=== PATIENT | male | born 1970 | race Caucasian/White ===

== ENCOUNTER 2020-08-05 14:55 | Emergency (ER) | payer OTHER, SELFPAY ==
[2020-08-05 15:09] VITALS: BP 174/136; PULSE 105; RESP 20; TEMP 37.2; O2SAT 98
--- NOTE | 2020-08-05 15:14 | ED.GENADULT ---
HPI - General Adult General Chief complaint: Upper Respiratory Infection Stated complaint: chest congestion Time Seen by Provider: 08/05/20 15:14 Source: patient and RN notes reviewed Mode of arrival: ambulatory Limitations: no limitations History of Present Illness HPI narrative: 49-year-old male presents with complaints of upper respiratory infection, sneezing, some facial congestion, facial pressure, and intermittent headache (not the worst of his life) for the past days. Rolando says approximately 6 weeks ago had similar symptoms with improvement except continue to have facial pressure and congestion. Theraflu this morning without relief. No facial swelling. Dry cough with intermittent productive whitish-yellow phlegm, no chest congestion. Nasal congestion and rhinorrhea. No sore throat. No high fevers, drooling, neck or throat swelling. No voice change. No nausea, vomiting, or abdominal pain. Tolerating liquids well. No chest pain or shortness of breath. Remains active. The patient reports he have not been diagnosed with COVID-19. The patient reports he is not waiting for the results of a COVID-19 lab test. The patient reports he do not have chills, weakness, or fatigue. The patient reports he do not have a worsening cough or shortness of breath. The patient reports he do not have any loss of taste, and diarrhea. Denies recent traveling. Denies concerns for COVID-19 or exposures been home with limited outdoor exposure except for essential household needs, work, and return home. At this time, patient is not suspected of having COVID-19. Some parts of this dictation were generated by voice recognition software and may contain typographical and/or grammatical inaccuracies. Related Data Allergies Allergy/AdvReac Type Severity Reaction Status Date / Time No Known Allergies Allergy Unverified 10/14/16 19:12 Review of Systems Review of Systems: Narrative: CONSTITUTIONAL: Denies fever, chills, sweats. EYES: Denies visual changes, redness, discharge. ENT: Complains of rhinorrhea, congestion, facial congestion and pressure, sore throat. Denies otalgia. CARDIOVASCULAR: Denies chest pain, palpitations, edema. RESPIRATORY: Denies dyspnea, wheezing. Complains of dry cough/intermittent productive cough. GASTROINTESTINAL: Denies abdominal pain, nausea, vomiting, diarrhea. GENITOURINARY: Denies dysuria, hematuria, abnormal discharge SKIN: Denies rash or itching. MUSCULOSKELETAL: Denies acute back pain, joint pain, or myalgia. NEUROLOGIC: Denies numbness, or focal weakness. Complains of intermittent LONGORIA. PSYCHIATRIC: Denies anxiety or depression. All other systems reviewed & are unremarkable except as noted in HPI and below. [facility] Past Medical History Medical History (Updated 08/06/20 @ 11:00 by ROSS Cleary) Allergies Surgical History Surgical History (Updated 08/06/20 @ 11:00 by ROSS Cleary) No significant past surgical history Family History Family History (Updated 08/06/20 @ 11:08 by ROSS Cleary) Father , in 2007 History of asbestosis Cancer Mother Alive and well Social History Social History (Updated 08/06/20 @ 11:11 by ROSS Cleary) Smoking status: Never smoker Tobacco type: cigarettes Second hand tobacco smoke exposure: No Alcohol intake: former Substance use: current Substance use type: marijuana Living arrangements: with family Occupation/Education: unemployed Gender identity (if verbalized by the patient): Male Comments At time of signature, agree with nurse past medical, surgical, social, and family history. There is no relevant family history pertinent to the presenting complaint. Exam Narrative: Exam Narrative: GENERAL: This is a well-nourished, well-developed patient, in no apparent distress. Talks in full sentences and ambulates with steady gait without dyspnea. HEAD: normocephalic, atraumatic. EYES: PERRL. S
[2020-08-05 15:26] VITALS: BP 151/92
== END 2020-08-05 15:37 | disposition home or self-care (01) ==
PROVIDERS: Emergency Provider Nurse Practitioner Family
DX: J32.9 Chronic sinusitis, unspecified (principal); H65.191 Other acute nonsuppurative otitis media, right ear
CPT/HCPCS: 99203; G0463

== ENCOUNTER 2021-07-23 09:52 | Emergency (ER) | payer OTHER, SELFPAY ==
--- NOTE | 2021-07-23 09:59 | ED.URI ---
HPI - URI/Sore Throat General Chief Complaint: Upper Respiratory Infection Stated Complaint: Ear Pain/ Cough Time Seen by Provider: 07/23/21 10:00 Source: patient and RN notes reviewed History of Present Illness HPI Narrative: Patient is a 50-year-old male who presents the urgent care with complaints of bilateral ear pain, worse on the left and a mild cough. Patient states it started approximately 3 to 4 days ago. States that he had Covid at the end of June and was just off quarantine on July 14. Patient states that symptoms were mild. Denies any fever, chills, nausea, vomiting. Denies of any shortness of breath. Patient has not taken anything [id number] for his symptoms. No other acute complaints. Distress noted. Patient read the plan of care. Some parts of this dictation were generated by voice recognition software and may contain typographical and/or grammatical inaccuracies. Related Data Allergies Allergy/AdvReac Type Severity Reaction Status Date / Time No Known Allergies Allergy Verified 07/23/21 10:10 Review of Systems Review of Systems: CONSTITUTIONAL: Denies fever, chills, or sweats. EYES: Denies visual changes, redness, or discharge. ENT: Denies rhinorrhea, congestion, sore throat. Reports bilateral otalgia CARDIOVASCULAR: Denies chest pain, palpitations, or edema. RESPIRATORY: Reports a mild cough without dyspnea GASTROINTESTINAL: Denies abdominal pain, nausea, vomiting, or diarrhea. GENITOURINARY: Denies dysuria or hematuria. SKIN: Denies rash or itching. MUSCULOSKELETAL: Denies back pain, joint pain, or myalgia. NEUROLOGIC: Denies headache, numbness, or weakness. All other systems reviewed are negative, except as documented in HPI. [facility] Past Medical History Medical History (Updated 07/23/21 @ 10:14 by ROSS Daly) Allergies Surgical History Surgical History (Updated 08/06/20 @ 11:00 by ROSS Cleary) No significant past surgical history Family History Family History (Updated 08/06/20 @ 11:08 by ROSS Cleary) Father , in 2007 History of asbestosis Cancer Mother Alive and well Social History Social History (Updated 08/06/20 @ 11:11 by ROSS Cleary) Smoking status: Never smoker Tobacco type: cigarettes Second hand tobacco smoke exposure: No Alcohol intake: former Substance use: current Substance use type: marijuana Gender identity (if verbalized by the patient): Male Comments At the time of my signature, I reviewed and agree with the nursing past medical, surgical, social, and family history. There is no relevant family history pertinent to the patient complaint. Exam Narrative: GENERAL: This is a well-nourished, well-developed patient, in no apparent distress. HEAD: normocephalic, atraumatic. EYES: PERRL. Sclera clear/white. Vision is grossly intact. EARS: External ears normal, mild erythema and mild edema to bilateral auditory canals. Scant bloody drainage noted in the canal of the left due to abrasion. moderate fluid noted behind bilateral TMs. TMs normal without perforation. Hearing grossly intact. NOSE: External nose normal with no obvious nasal discharge, nares without redness, no rhinorrhea. THROAT: Mucous membranes moist, posterior pharynx clear. Moderate postnasal drainage NECK: Neck supple CARDIOVASCULAR: Regular rate and rhythm without murmurs, gallops, or rubs. RESPIRATORY: Clear to auscultation. Breath sounds equal bilaterally. No wheezes, rales, or rhonchi. SKIN: warm, intact with no suspicious lesions or rash, good texture and turgor. NEURO: awake, alert, and oriented to person, place and time. There were no obvious focal neurologic abnormalities. EXTREMITIES: No clubbing, cyanosis, or edema. Course Vital Signs Vital signs: Vital Signs Temperature 98.3 F 07/23/21 10:06 Pulse Rate 92 07/23/21 10:06 Respiratory Rate 16 07/23/21 10:06 Blood Pressure 144/95 H 07/23/21
[2021-07-23 10:06] VITALS: BP 144/95; PULSE 92; RESP 16; TEMP 36.8; O2SAT 99
== END 2021-07-23 10:20 | disposition home or self-care (01) ==
PROVIDERS: Emergency Provider Nurse Practitioner Family
DX: H60.92 Unspecified otitis externa, left ear (principal)
CPT/HCPCS: 99213; G0463

== ENCOUNTER 2022-06-18 11:23 | Emergency (ER) | payer OTHER, SELFPAY ==
[2022-06-18 11:35] VITALS: BP 130/96; PULSE 62; RESP 18; TEMP 36.2; O2SAT 96
--- NOTE | 2022-06-18 11:46 | ED.DIZZY ---
HPI - Dizziness General Chief Complaint: Dizziness Stated Complaint: dizziness ear pressure anxiety Time Seen by Provider: 06/18/22 12:00 Mode of arrival: ambulatory Limitations: no limitations History of Present Illness HPI Narrative: 51-year-old male presents concern for dizziness that started yesterday. Reports he skipped a meal and felt like his blood sugar was low when he began feeling dizzy. Reports since then when his eyes are open he feels dizzy. Reports when his eyes are closed he does not feel dizzy. He reports 1 episode of vomiting related to dizziness. He denies trying any medications for his symptoms. He denies weakness in any extremity, thunderclap headache, difficulty swallowing, difficulty speaking. MD elicited complaint: dizziness Related Data Allergies Allergy/AdvReac Type Severity Reaction Status Date / Time No Known Allergies Allergy Verified 06/18/22 11:45 Review of Systems Review of Systems: CONSTITUTIONAL: Denies malaise, chills, sweats, or fever. EYES: Denies visual changes, redness, diplopia, or discharge. ENT: Reports rhinorrhea, right ear fullness. Denies congestion, sinus pain, otalgia or sore throat. CARDIOVASCULAR: Denies chest pain, palpitations, or edema. RESPIRATORY: Denies cough or dyspnea. GASTROINTESTINAL: Denies abdominal pain, diarrhea. Reports 1 episode of vomiting MUSCULOSKELETAL: Denies weakness in any extremity, myalgia. NEUROLOGIC: Denies numbness, weakness, or headache. Reports room spinning dizziness when he opens his eyes PSYCHIATRIC: Reports anxiety 2 days ago All systems reviewed & are unremarkable except as noted in HPI and below PMFSH Past Medical History Medical History (Updated 06/18/22 @ 12:20 by Bette Urbina NP) Allergies Surgical History Surgical History (Updated 08/06/20 @ 11:00 by ROSS Cleary) No significant past surgical history Family History Family History (Updated 08/06/20 @ 11:08 by ROSS Cleary) Father , in 2007 History of asbestosis Cancer Mother Alive and well Social History Social History (Updated 08/06/20 @ 11:11 by ROSS Cleary) Smoking status: Never smoker Tobacco type: cigarettes Second hand tobacco smoke exposure: No Alcohol intake: former Substance use: current Substance use type: marijuana Gender identity (if verbalized by the patient): Male Comments At time of signature, agree with nursing past medical, surgical, social and family history. There is no relevant family history pertinent to the presenting complaint Exam Narrative: GENERAL: Nontoxic-appearing and in no acute distress. HEAD: Normocephalic, atraumatic. EYES: PERRLA, sclera clear, and EOMI. No nystagmus. Right eye amblyopia, patient reports this is baseline ENT: Nares clear. Mucous membranes moist. TM pearly becerril with sharp light reflex bilaterally; no tragal tenderness. Oropharynx without erythema or lesions. Tonsils not enlarged and without exudate. NECK: Supple. No jugular venous distension, Carotids were easily palpable bilaterally. CHEST: No respiratory distress. Clear to auscultation. No bony deformities, no asymmetry. Speaks in full sentences. HEART: Regular rate and rhythm. No murmur heard. EXTREMITIES: Normal range of motion. No edema. Normal strength and sensation. SKIN: Warm, dry, no visible rash. NEURO: Alert and oriented x3. No focal deficits. Cranial nerves II through XII grossly intact PSYCH: Normal mood and affect Course Course Emergency Course: Patient is aware of diagnosis, understands and agrees to treatment plan. Anticipatory guidance given. Patient agrees to follow-up as directed and is aware of reasons to seek care at the emergency department. Portions of this record may have been created with voice recognition software Level of Care: Express Care Visit Vital Signs Vital signs: Reviewed. MDM - Dizziness MDM Narrative Medical decision making narrative: Patients josseline
[2022-06-18 12:19] LABS: Glucose Point of Care 134 mg/dl (65-105)
== END 2022-06-18 12:25 | disposition home or self-care (01) ==
PROVIDERS: Emergency Provider Nurse Practitioner; PCP Family Medicine
DX: R42 Dizziness and giddiness (principal)
CPT/HCPCS: 82948; 99213; G0463

== ENCOUNTER 2022-11-24 08:07 | Emergency (ER) | payer OTHER, SELFPAY ==
[2022-11-24 08:12] VITALS: BP 106/58; PULSE 77; RESP 14; TEMP 36.8; O2SAT 97
--- NOTE | 2022-11-24 08:35 | ED.URI ---
HPI - URI/Sore Throat General Chief Complaint: Upper Respiratory Infection Stated Complaint: Ear Pain/Cough Time Seen by Provider: 11/24/22 08:35 Source: patient, RN notes reviewed and old records reviewed Mode of arrival: ambulatory Limitations: no limitations History of Present Illness HPI Narrative: 52-year-old male who presents to [facility] with complaints of cough for the past 3--4 days with sneezing, nasal congestion and drainage also. He states that his ears have felt plugged for the past 10 days or so. Patient has not taken any OTC medications for his symptoms. Patient reports that his chest has felt congested since yesterday with some brownish green expectoration of mucous noted today. Patient is scheduled for cardiac ablation related to A-fib on the 10 of December. Patient refuses chest x-ray at this time and refuses steroid of Prednisone states makes his heart rate go tachy. Is agreeable to take Medrol. MD elicited complaint: cough and other (ear pain) Onset (ago): day(s) (4) Pain scale (0-10): 3 Description of mucous: green Related Data Home Medications Medication Instructions Recorded Confirmed amiodarone 400 mg tablet 400 mg PO TID 11/24/22 11/24/22 apixaban 5 mg tablet (Eliquis) 5 mg PO BID 11/24/22 11/24/22 furosemide 20 mg tablet 20 mg PO DAILY 11/24/22 11/24/22 metolazone 2.5 mg tablet 2.5 mg PO DAILY 11/24/22 11/24/22 metoprolol succinate 25 mg 25 mg PO DAILY 11/24/22 11/24/22 tablet,extended release 24 hr sacubitril 24 mg-valsartan 26 mg 1 tablet PO BID 11/24/22 11/24/22 tablet (Entresto) Allergies Allergy/AdvReac Type Severity Reaction Status Date / Time No Known Allergies Allergy Verified 11/24/22 08:24 Review of Systems Review of Systems: CONSTITUTIONAL: Denies malaise, chills, sweats, or fever. EYES: Denies visual changes, redness, or discharge. ENT: Reports rhinorrhea, congestion, sinus pain, otalgia and sore throat. CARDIOVASCULAR: Denies chest pain, palpitations, or edema. RESPIRATORY: Reports cough.? Denies dyspnea. GASTROINTESTINAL: Denies abdominal pain, nausea, vomiting, diarrhea SKIN: Denies rash or itching. MUSCULOSKELETAL: Denies myalgia. NEUROLOGIC: Denies headache. All systems reviewed & are unremarkable except as noted in HPI and below PMFSH Past Medical History Medical History (Updated 11/24/22 @ 21:19 by Alea Patterson NP) Allergies Atrial fibrillation SVT (supraventricular tachycardia) cardioversion Surgical History Surgical History No significant past surgical history Family History Family History Father , in 2007 History of asbestosis Cancer Mother Alive and well Social History Social History (Updated 11/24/22 @ 21:12 by Alea Patterson NP) Smoking status: Never smoker Tobacco type: cigarettes Second hand tobacco smoke exposure: No Alcohol intake: former Substance use type: does not use Living arrangements: with family Occupation/Education: unemployed Gender identity (if verbalized by the patient): Male Comments At time of signature, agree with nursing past medical, surgical, social and family history. There is no relevant family history pertinent to the presenting complaint Exam Narrative: GENERAL: Well-appearing, well-nourished, and in no acute distress. HEAD: Normocephalic EYES: PERRLA, conjunctivae clear ENT: Nares clear, turbinates edematous and erythematous, clear discharge. Mucous membranes moist. TM pearly becerril with dull light reflex bilaterally; no tragal tenderness. Oropharynx erythematous without lesions. Tonsils not enlarged and without exudate, no drooling, no hoarseness, no trismus, uvula midline. NECK: Supple. No lymphadenopathy CHEST: Wheezing upper lobes, breath sounds equal, expiratory wheezes, no rhonchi, rales, or stridor. No respiratory distress, speaks in
== END 2022-11-24 09:00 | disposition home or self-care (01) ==
PROVIDERS: Emergency Provider Registered Nurse; PCP Family Medicine Sports Medicine
DX: J40 Bronchitis, not specified as acute or chronic (principal); J06.9 Acute upper respiratory infection, unspecified; I48.91 Unspecified atrial fibrillation
CPT/HCPCS: 99213; G0463

== ENCOUNTER 2023-08-13 14:15 | Emergency (ER) | payer OTHER, SELFPAY ==
[2023-08-13 14:16] VITALS: BP 120/86; PULSE 87; RESP 18; TEMP 37.1; O2SAT 98
--- NOTE | 2023-08-13 14:17 | ED.URI ---
HPI - URI/Sore Throat General Chief Complaint: Upper Respiratory Infection Stated Complaint: Cough Time Seen by Provider: 08/13/23 14:16 Source: patient Mode of arrival: ambulatory Limitations: no limitations History of Present Illness HPI Narrative: Rolando is a 52-year-old male patient presenting to the clinic today with complaints of a cough, sinus congestion, and wheezing x2 weeks. He reports no fever chills. Is bringing up some green phlegm when coughing. Denies any shortness of breath or chest pain. MD elicited complaint: cough, rhinorrhea, nasal congestion, sinus pain and other (Wheezing) Related Data Home Medications Medication Instructions Recorded Confirmed metoprolol succinate 25 mg 25 mg PO DAILY 11/24/22 08/13/23 tablet,extended release 24 hr sacubitril 24 mg-valsartan 26 mg 1 tablet PO BID 11/24/22 08/13/23 tablet (Entresto) Allergies Allergy/AdvReac Type Severity Reaction Status Date / Time No Known Allergies Allergy Verified 11/24/22 08:24 Review of Systems Review of Systems: Pertinent positives per HPI. Patient denies any fever, chills, rash, headache, visual changes, dizziness, shortness of breath, chest pain, palpitations, nausea, vomiting, diarrhea, constipation, abdominal pain, or any urinary issues. [facility] Past Medical History Medical History Allergies Atrial fibrillation SVT (supraventricular tachycardia) cardioversion Surgical History Surgical History No significant past surgical history Family History Family History Father , in 2007 History of asbestosis Cancer Mother Alive and well Social History Social History Smoking status: Never smoker Tobacco type: cigarettes Second hand tobacco smoke exposure: No Alcohol intake: former Substance use type: does not use Living arrangements: with family Occupation/Education: unemployed Gender identity (if verbalized by the patient): Male Comments At the time of my signature, I reviewed and agree with the nursing past medical, surgical, social, and family history. There is no relevant family history pertinent to the patient complaint. Exam Narrative: General: Well-developed, well nourished, in no apparent distress Head: Normocephalic, atraumatic Eyes: Pupils equally round and reactive to light bilaterally, EOM intact, sclera and conjunctive clear, no discharge, lids normal Ears: TMs intact and clear, ear canals clear, no drainage, grossly hearing normal. Nose: Nares patent, green nasal discharge, severe inflammation with white striae, maxillary sinus tenderness. Mouth: Oral pharynx without lesions or masses, good dentition, MMM. Neck: Supple, trachea midline, no enlargement of anterior or posterior cervical nodes, no thyroid masses or goiter palpable. Cardio: Regular rate and rhythm, s1 and s2 normal, no murmur appreciated. Resp: Expiratory wheezing throughout lung romero, no rhonchi, rales, wheezing or rubs Course Course Emergency Course: Portions of this record may have been created with voice recognition software. Level of Care: Express Care Visit Vital Signs Vital signs: Vital signs reviewed MDM - URI/Sore Throat MDM Narrative Medical decision making narrative: At the time of visit patient is resting comfortably on the exam table. I suspect patient has acute bacterial rhinosinusitis and acute bronchitis. Prescription for Augmentin, albuterol inhaler, and prednisone was sent to the pharmacy. Supportive measures were discussed with the patient he voiced understanding discharge instructions agrees to treatment plan. Return precautions were also reviewed he voiced understanding. Differential Diagnosis Differential diagnosis: Likely upper re
== END 2023-08-13 14:35 | disposition home or self-care (01) ==
PROVIDERS: Emergency Provider Nurse Practitioner Family; PCP Family Medicine Sports Medicine
DX: J01.90 Acute sinusitis, unspecified (principal); B96.89 Other specified bacterial agents as the cause of diseases classified elsewhere; J20.9 Acute bronchitis, unspecified; I48.91 Unspecified atrial fibrillation
CPT/HCPCS: 99213; G0463

== ENCOUNTER 2023-12-24 16:25 | Emergency (ER) | payer OTHER, SELFPAY ==
[2023-12-24 16:30] VITALS: BP 122/65; PULSE 96; RESP 20; TEMP 37.7; O2SAT 100
[2023-12-24 16:39] VITALS: BP 122/65; PULSE 96; RESP 20; TEMP 37.7; O2SAT 100
--- NOTE | 2023-12-24 16:45 | ED.DENTAL ---
HPI - Dental/Oral General Chief complaint: Dental/Oral Stated complaint: tooth pain Source: patient, RN notes reviewed and old records reviewed Mode of arrival: ambulatory Limitations: no limitations History of Present Illness HPI Narrative: 53-year-old male patient presents to [facility] with complaint of upper right dental pain that started yesterday. Patient states cannot get into the dentist till Thursday and thinks to this infected. Related Data Home Medications Medication Instructions Recorded Confirmed metoprolol succinate 25 mg 25 mg PO DAILY 11/24/22 12/24/23 tablet,extended release 24 hr sacubitril 24 mg-valsartan 26 mg 1 tablet PO BID 11/24/22 12/24/23 tablet (Entresto) Allergies Allergy/AdvReac Type Severity Reaction Status Date / Time No Known Allergies Allergy Verified 11/24/22 08:24 Review of Systems Constitutional: Constitutional: Reports no additional constitutional complaints, Denies body ache(s), Denies chills, Denies fatigue, Denies fever(s) and Denies headache(s) Eyes: Eyes: Reports no additional eye complaints and Denies blurry vision ENT: Reports system reviewed and no additional complaints, except as documented, Reports dental pain, Denies vertigo, Denies dizziness, Denies ear discharge, Denies otalgia, Denies facial pain, Denies headache(s), Denies nasal congestion, Denies nasal discharge, Denies sinus pain, Denies sinus pressure and Denies sore throat Cardiovascular: Cardiovascular: Reports no additional cardiovascular complaints, Denies chest pain, Denies chest pain at rest, Denies rapid heart rate and Denies dyspnea Respiratory: Respiratory: Reports no additional respiratory complaints, Denies chest congestion, Denies cough, Denies pain on inspiration, Denies pain with cough and Denies dyspnea Gastrointestinal: Gastrointestinal: Denies abdominal pain, Denies diarrhea, Denies nausea and Denies vomiting Integumentary/Breasts: Skin/Breast: Denies rash Neurologic: Reports system reviewed and no additional complaints, except as documented, Denies vertigo, Denies dizziness and Denies headache(s) Endocrine: Endocrine: Denies fatigue PMFSH Past Medical History Medical History Allergies Atrial fibrillation SVT (supraventricular tachycardia) cardioversion Surgical History Surgical History No significant past surgical history Family History Family History Father , in 2007 History of asbestosis Cancer Mother Alive and well Social History Social History Smoking status: Never smoker Tobacco type: cigarettes Second hand tobacco smoke exposure: No Alcohol intake: former Substance use type: does not use Living arrangements: with family Occupation/Education: unemployed Gender identity (if verbalized by the patient): Male Comments At the time of my signature, I reviewed and agree with the nursing past medical, surgical, social, and family history. There is no relevant family history pertinent to the patient complaint. Exam Const: General: cooperative, healthy appearing, no acute distress and well nourished Nutritional Appearance: well nourished Orientation/consciousness: patient oriented x3 Limitations: no limitations HENMT: Head: normal to inspection and normocephalic Ears: external ears normal Face/Nose/Sinus: normal facial exam Face and sinus: normal facial exam Mouth: Yes Normal oral and palatal mucosa present, Yes lip normal, Yes tongue normal, Yes oropharynx normal and Yes moist mucous membranes Teeth and gingiva: gingiva abnormal diffusely erythematous and tender Teeth image: 1. Gingival erythematous and swelling Throat: tonsils normal, uvula midline and no uvular edema Eyes: General: appearance normal, b
== END 2023-12-24 16:52 | disposition home or self-care (01) ==
PROVIDERS: Emergency Provider Registered Nurse; PCP Family Medicine Sports Medicine
DX: K04.7 Periapical abscess without sinus (principal); I48.91 Unspecified atrial fibrillation; Z79.899 Other long term (current) drug therapy
CPT/HCPCS: 99213; G0463